=== PATIENT | female | born 1935 ===

== ENCOUNTER 2018-06-03 12:56 | Emergency (ER) | payer OTHER ==
[~2018-06-03] VITALS: Ht 152.4 cm; Wt 39.9 kg
[2018-06-03] MEDS ORDERED: LAMICTAL100 M1 PO (13:24)
[2018-06-03] MEDS ORDERED: SINGULAIR10 MG PO (13:25)
[2018-06-03] MEDS ORDERED: PERSANTINE25 MG PO ×2 (13:25→13:28)
[2018-06-03] MEDS ORDERED: NAMENDA10 MG PO (13:26)
[2018-06-03] MEDS ORDERED: ZYRTEC10 M3 PO (13:28)
[2018-06-03] MEDS ORDERED: VASOTEC5 MG PO (13:28)
[2018-06-03] MEDS ORDERED: XOPENEX0.63 MG/3 IH (13:29)
[2018-06-03] MEDS ORDERED: BUDEO.25 IH (13:29)
== END 2018-06-03 18:38 | disposition home or self-care (01) ==
LOC: ER 12:56
DX: J44.1 Chronic obstructive pulmonary disease with (acute) exacerbation (principal)

== ENCOUNTER 2018-07-16 16:43 | Emergency (ER) | payer OTHER ==
[~2018-07-16] VITALS: Ht 152.4 cm; Wt 39.0 kg
[~2018-07-16 16:43] MED LIST: BUDEO.25 IH; LAMICTAL100 M1 PO; NAMENDA10 MG PO; PERSANTINE25 MG PO; SINGULAIR10 MG PO; VASOTEC5 MG PO; XOPENEX0.63 MG/3 IH; ZYRTEC10 M3 PO
[2018-07-16] MEDS ORDERED: HUMALOG100 UNIT/1 (17:17)
[2018-07-16] MEDS ORDERED: LANTUS SOL100 UNIT/1 (17:17)
== END 2018-07-16 20:38 | disposition home or self-care (01) ==
LOC: ER 16:43
DX: J44.1 Chronic obstructive pulmonary disease with (acute) exacerbation (principal); J11.1 Influenza due to unidentified influenza virus with other respiratory manifestations

== ENCOUNTER 2018-10-20 10:12 | Inpatient (IN) | payer OTHER ==
[~2018-10-20] VITALS: Ht 154.9 cm; Wt 40.8 kg
[~2018-10-20 10:12] MED LIST changes: +HUMALOG100 UNIT/1; +LANTUS SOL100 UNIT/1
[2018-10-20] MEDS ORDERED: QVAR8.7 G1 (11:28)
[2018-10-23] MEDS ORDERED: MEDROL4 MG PO (13:40)
== END 2018-10-23 14:17 | disposition home or self-care (01) | DRG 202 ==
LOC: ER 10:12 → MEDJ 22:19 → SEC-K 22:19 → MEDJ 10-21 03:40
PROVIDERS: ADMIT Internal Medicine
PROC: 4A033R1 Measurement of Arterial Saturation, Peripheral, Percutaneous Approach (ICD-10-PCS; principal; 2018-10-20)
PROC: 3E0F7GC Introduction of Other Therapeutic Substance into Respiratory Tract, Via Natural or Artificial Opening (ICD-10-PCS; 2018-10-20)
DX: J45.51 Severe persistent asthma with (acute) exacerbation (principal); J44.1 Chronic obstructive pulmonary disease with (acute) exacerbation; I73.89 Other specified peripheral vascular diseases; E11.65 Type 2 diabetes mellitus with hyperglycemia; Z74.01 Bed confinement status